=== PATIENT | female | born 1955 | race Two or more races ===

== ENCOUNTER → 2020-02-11 | Outpatient (CLI) | payer OTHER | END | disposition home or self-care (01) | LOC: RAD 15:00 | PROVIDERS: ATTEND Obstetrics & Gynecology | DX: I87.8 Other specified disorders of veins (principal); R05 Cough ==

== ENCOUNTER 2020-02-27 07:00 | Inpatient (IN) | payer OTHER ==
[~2020-02-27] VITALS: Ht 162.6 cm; Wt 66.7 kg
== END 2020-03-10 09:46 | DRG 743 ==
LOC: O/R 03-05 06:00 → OB/GYN 03-05 06:00 → SURH 03-05 07:00 → OB/GYN 03-05 16:23
PROVIDERS: Urology; ADMIT Obstetrics & Gynecology; ATTEND Obstetrics & Gynecology
PROC: 0TSD4ZZ Reposition Urethra, Percutaneous Endoscopic Approach (ICD-10-PCS; 2020-03-05)
PROC: 0UT9FZZ Resection of Uterus, Via Natural or Artificial Opening With Percutaneous Endoscopic Assistance (ICD-10-PCS; principal; 2020-03-05 09:00)
PROC: 0JQC3ZZ Repair Pelvic Region Subcutaneous Tissue and Fascia, Percutaneous Approach (ICD-10-PCS; 2020-03-05 09:00)
DX: N81.12 Cystocele, lateral (principal); N81.6 Rectocele; N39.3 Stress incontinence (female) (male); D06.7 Carcinoma in situ of other parts of cervix